=== PATIENT | female | born 1955 | race Caucasian/White ===

== ENCOUNTER 2016-08-27 10:23 | Emergency (ER) | payer OTHER ==
[~2016-08-27] VITALS: Ht 162.6 cm; Wt 66.3 kg
[~2016-08-27 10:23] MED LIST: ACAMPROSATE CA333 MG PO; CAMPRAL333 MG PO; CELEBREX100 MG PO; CELEBREX50 MG PO; CEPHALEXIN500 MG PO; CLONAZEPAM0.5 MG PO; DAILY VITAMIN1 EAC8 PO; EFFEXOR XR150 MG PO; EFFEXOR XR75 MG PO; EFFEXOR75 MG PO; NALTREXONE HCL50 MG PO; NOLVADEX20 MG PO; PRILOSEC10 MG PO; PRINIVIL10 MG PO; REVIA50 MG PO; SYSTANE GEL EYE10 ML BOTH EYES; VENLAFAXINE HC150 M1 PO; ZOLOFT100 MG PO
[2016-08-27 11:11] LABS: ADD MIUA? YES; BILIRUBIN NEGATIVE; BLOOD NEGATIVE; COLOR STRAW ((YELLOW)); GLUCOSE (STRIP) NEGATIVE; KETONES NEGATIVE; LEUKOCYTES TRACE; NITRITE NEGATIVE; PROTEIN (STRIP) NEGATIVE; SPECIFIC GRAVITY 1.006 (1.000-1.030); UROBILINOGEN 0.2 MG/DL (0.2-1.0)
[2016-08-27 11:14] LABS: BACTERIA NONE SEEN /HPF; EPITHELIAL CELLS RARE /HPF; MUCUS NONE SEEN /LPF; RED BLOOD CELLS 0-5 /HPF (0-5); WHITE BLOOD CELLS 0-5 /HPF (0-5)
[2016-08-27] MEDS ORDERED: PRAZOSIN HCL1 MG PO (11:20)
[2016-08-27 11:21] LABS: AMPHETAMINE NEGATIVE (500 ng/mL); BARBITURATES NEGATIVE (200 ng/mL); BENZODIAZEPINES NEGATIVE (150 ng/mL); COCAINE NEGATIVE (150 ng/mL); INTERNAL CONTROLS VALID? YES; METHADONE NEGATIVE (200 ng/mL); METHAMPHETAMINE NEGATIVE (500 ng/mL); OPIATES (MORPHINE) NEGATIVE (100 ng/mL); OXYCODONE NEGATIVE (100 ng/mL); PHENCYCLIDINE NEGATIVE (25 ng/mL); PROPOXYPHENE NEGATIVE (300 ng/mL); THC CANNABINOIDS NEGATIVE (50 ng/mL); TRICYCLIC ANTIDEPRESSANTS NEGATIVE (300 ng/mL)
[2016-08-27] MEDS ORDERED: PRISTIQ50 MG PO (11:21)
[2016-08-27] MEDS ORDERED: NALTREXONE HCL50 MG PO (11:22)
[2016-08-27] MEDS ORDERED: DOXYCYCLINE MO100 MG PO (11:23)
[2016-08-27 11:24] LABS: EOSINOPHIL (%) 4.7 % (0-5); EOSINOPHIL COUNT 0.1 K/uL (0-0.3); HEMATOCRIT 37.7 % (36.0-46.0); IMMATURE GRANULOCYTE (%) 0.3 % (0.0-0.7); INSTRUMENT ABS NEUTROPHIL CT 1.5 K/uL; LYMPHOCYTE COUNT 1.1 K/uL (1.0-2.8); MCH 30.4 PG (29.0-34.0); MCHC 32.6 G/DL (30.0-36.0); MCV 93.1 FL (83-99); MEAN PLAT.VOLUME 8.7 uM^3 (9.5-12.4); MONOCYTE (%) 5.7 % (3-12); MONOCYTE COUNT 0.2 K/uL (0-0.8); NEUTROPHIL (%) 50.8 % (45-76); NEUTROPHIL COUNT 1.5 K/uL (1.8-6.4); PLATELET COUNT 159 K/uL (156-360); RBC DIS.WIDTH-CV 15.5 % (11.8-14.6); RBC DIS.WIDTH-SD 53.1 % (39-53); RED BLOOD COUNT 4.05 M/uL (3.80-5.20)
[2016-08-27 11:32] LABS: CHLORIDE 104 mEq/L (99-109); POTASSIUM 3.6 mEq/L (3.7-5.4); SODIUM 144 mEq/L (136-147)
[2016-08-27 11:34] LABS: GLUCOSE 86 mg/dL (70-99)
[2016-08-27 11:35] LABS: ANION GAP 13 MEQ/L (2-14)
[2016-08-27 11:37] LABS: SERUM ETHYL ALCOHOL 258 mg/dL
[2016-08-27 11:38] LABS: GFR ESTIMATE (CALCULATED) > 59 mL/min/; UREA NITROGEN (BUN) 9 mg/dL (9-23)
[2016-08-27 17:38] VITALS: BP 147/80
== END 2016-08-27 17:49 | disposition home or self-care (01) ==
LOC: EME 10:23
PROVIDERS: Emergency Medicine
DX: F10.129 Alcohol abuse with intoxication, unspecified (principal); F41.9 Anxiety disorder, unspecified; F32.9 Major depressive disorder, single episode, unspecified; F60.9 Personality disorder, unspecified; Y90.8 Blood alcohol level of 240 mg/100 ml or more; Z91.5 Personal history of self-harm; Z87.442 Personal history of urinary calculi; I10 Essential (primary) hypertension; Z88.6 Allergy status to analgesic agent
CPT/HCPCS: 80048; 81003; 85025; 90839; 99281; 99285; G0480

== ENCOUNTER 2017-01-25 16:35 | Emergency (ER) | payer OTHER ==
[~2017-01-25] VITALS: Ht 162.6 cm; Wt 61.3 kg
[~2017-01-25 16:35] MED LIST changes: +DOXYCYCLINE MO100 MG PO; +PRAZOSIN HCL1 MG PO; +PRISTIQ50 MG PO
[2017-01-25 17:59] LABS: HEMATOCRIT 41.2 % (36.0-46.0); MCH 31.5 PG (29.0-34.0); MCHC 34.2 G/DL (30.0-36.0); MEAN PLAT.VOLUME 9.3 uM^3 (9.5-12.4); PLATELET COUNT 260 K/uL (156-360); RBC DIS.WIDTH-CV 13.8 % (11.8-14.6); RBC DIS.WIDTH-SD 47.2 % (39-53); RED BLOOD COUNT 4.48 M/uL (3.80-5.20); WHITE BLOOD COUNT 7.3 K/uL (4.1-10.2)
[2017-01-25 18:09] LABS: CHLORIDE 107 mEq/L (99-109); POTASSIUM 3.8 mEq/L (3.7-5.4); SODIUM 143 mEq/L (136-147)
[2017-01-25 18:10] LABS: MAGNESIUM 1.9 mg/dL (1.3-2.7)
[2017-01-25 18:11] LABS: GLUCOSE 73 mg/dL (70-99)
[2017-01-25 18:12] LABS: ANION GAP 16 MEQ/L (2-14)
[2017-01-25 18:14] LABS: SERUM ETHYL ALCOHOL 146 mg/dL
[2017-01-25 18:15] LABS: GFR ESTIMATE (CALCULATED) > 59 mL/min/
[2017-01-25 18:16] LABS: UREA NITROGEN (BUN) 15 mg/dL (9-23)
[2017-01-25] MEDS ORDERED: ZOFRAN ODT4 MG PO (18:19)
[2017-01-25 19:52] VITALS: BP 125/71
== END 2017-01-25 20:03 | disposition home or self-care (01) ==
LOC: EME 16:35
PROVIDERS: Nurse Practitioner Family
DX: F10.10 Alcohol abuse, uncomplicated (principal); R11.2 Nausea with vomiting, unspecified; Y90.6 Blood alcohol level of 120-199 mg/100 ml; I10 Essential (primary) hypertension
CPT/HCPCS: 80048; 81003; 83735; 85027; 99281; 99284; G0480; J2060; J2405; J7030

== ENCOUNTER 2017-04-23 16:47 | Inpatient (IN) | payer OTHER ==
[~2017-04-23] VITALS: Ht 162.6 cm; Wt 58.9 kg
[~2017-04-23 16:47] MED LIST changes: +ZOFRAN ODT4 MG PO
[2017-04-23 17:57] LABS: HEMATOCRIT 46.2 % (36.0-46.0); HEMOGLOBIN 15.6 G/DL (11.9-15.5); MCH 30.6 PG (29.0-34.0); MCHC 33.8 G/DL (30.0-36.0); MCV 90.6 FL (83-99); PLATELET COUNT 369 K/uL (156-360); RBC DIS.WIDTH-CV 13.6 % (11.8-14.6); RBC DIS.WIDTH-SD 45.2 % (39-53); WHITE BLOOD COUNT 8.3 K/uL (4.1-10.2)
[2017-04-23 18:16] LABS: CHLORIDE 100 mEq/L (99-109); POTASSIUM 4.4 mEq/L (3.7-5.4); SODIUM 136 mEq/L (136-147)
[2017-04-23 18:18] LABS: GLUCOSE 65 mg/dL (70-99)
[2017-04-23 18:21] LABS: SERUM ETHYL ALCOHOL 274 mg/dL
[2017-04-23 18:22] LABS: CREATININE 0.8 mg/dL (0.6-1.3); GFR ESTIMATE (CALCULATED) > 59 mL/min/
[2017-04-23 18:23] LABS: UREA NITROGEN (BUN) 20 mg/dL (9-23)
[2017-04-24 01:29] LABS: CHLORIDE 104 mEq/L (99-109); POTASSIUM 4.3 mEq/L (3.7-5.4); SODIUM 136 mEq/L (136-147)
[2017-04-24 01:31] LABS: GLUCOSE 62 mg/dL (70-99)
[2017-04-24 01:34] LABS: CREATININE 0.6 mg/dL (0.6-1.3); GFR ESTIMATE (CALCULATED) > 59 mL/min/
[2017-04-24 01:35] LABS: UREA NITROGEN (BUN) 14 mg/dL (9-23)
[2017-04-24 02:53] LABS: BASE EXCESS -10.7 mEq/L (-3 to +3); BICARBONATE 13.9 mEq/L (22-26); CARBOXY HGB 1.8 % (0-5); COMMENTS - BLOOD GASES C+A+; DEVICE ROOM AIR; METHEMOGLOBIN 1.1 % (0-1.5); PCO2 27 mm Hg (35-45); PO2 98 mm Hg (80-100); SITE LR; pH 7.32 (7.35-7.45)
[2017-04-24 12:24] LABS: HEMATOCRIT 36.5 % (36.0-46.0); MCH 30.8 PG (29.0-34.0); MCHC 34.5 G/DL (30.0-36.0); MCV 89.2 FL (83-99); RBC DIS.WIDTH-CV 13.9 % (11.8-14.6); RBC DIS.WIDTH-SD 45.1 % (39-53); RED BLOOD COUNT 4.09 M/uL (3.80-5.20)
[2017-04-24 12:36] LABS: ALBUMIN 3.9 g/dL (3.2-4.8); CHLORIDE 104 mEq/L (99-109); POTASSIUM 4.4 mEq/L (3.7-5.4); SODIUM 138 mEq/L (136-147)
[2017-04-24 12:38] LABS: TOTAL PROTEIN 6.6 g/dL (6.4-8.3)
[2017-04-24 12:39] LABS: GLUCOSE 83 mg/dL (70-99)
[2017-04-24 12:40] LABS: TOTAL BILIRUBIN 1.4 mg/dL (0.0-1.0)
[2017-04-24 12:42] LABS: COCAINE NEGATIVE (150 ng/mL); METHAMPHETAMINE NEGATIVE (500 ng/mL); OPIATES (MORPHINE) NEGATIVE (100 ng/mL); PHENCYCLIDINE NEGATIVE (25 ng/mL); THC CANNABINOIDS NEGATIVE (50 ng/mL)
[2017-04-24 12:42] LABS: ALKALINE PHOSPHATASE 83 IU/L (3-129); CREATININE 0.8 mg/dL (0.6-1.3); GFR ESTIMATE (CALCULATED) > 59 mL/min/; HEMOGLOBIN 12.6 G/DL (11.9-15.5)
[2017-04-24 12:43] LABS: UREA NITROGEN (BUN) 13 mg/dL (9-23)
[2017-04-24 12:43] LABS: AMPHETAMINE NEGATIVE (500 ng/mL); BARBITURATES NEGATIVE (200 ng/mL); BENZODIAZEPINES NEGATIVE (150 ng/mL); BUPRENORPHINE NEGATIVE (10 ng/mL); METHADONE NEGATIVE (200 ng/mL); OXYCODONE NEGATIVE (100 ng/mL); PROPOXYPHENE NEGATIVE (300 ng/mL); TRICYCLIC ANTIDEPRESSANTS NEGATIVE (300 ng/mL)
[2017-04-24 12:44] LABS: AST (GOT) 38 IU/L (2-34)
[2017-04-24 12:45] LABS: ALT (GPT) 25 IU/L (3-49)
[2017-04-24 13:22] LABS: PLATELET CLUMPS PRESENT - PLATELET COUNT APPEARS ADQ.; PLATELET COUNT UNABLE TO REPORT K/uL (156-360)
[2017-04-24 16:16] VITALS: BP 131/57
[2017-04-24 19:46] VITALS: BP 100/55
[2017-04-24 20:53] LABS: CHLORIDE 102 MEQ/L (99-109); CREATININE 0.7 MG/DL (0.6-1.3); GFR ESTIMATE (CALCULATED) > 59 mL/min/; POTASSIUM 3.6 MEQ/L (3.7-5.4); SERUM ETHYL ALCOHOL < 10 mg/dL; SODIUM 135 MEQ/L (136-147); UREA NITROGEN (BUN) 18 mg/dL (9-23)
[2017-04-24 20:54] LABS: GLUCOSE 157 mg/dL (70-99)
[2017-04-24 23:52] VITALS: BP 103/55
[2017-04-25 03:44] VITALS: BP 114/59
[2017-04-25 08:16] VITALS: BP 110/71
[2017-04-25 12:15] VITALS: BP 169/89
[2017-04-25 12:44] LABS: CHLORIDE 105 MEQ/L (99-109); CREATININE 0.5 MG/DL (0.6-1.3); GFR ESTIMATE (CALCULATED) > 59 mL/min/; POTASSIUM 3.5 MEQ/L (3.7-5.4); SODIUM 139 MEQ/L (136-147); UREA NITROGEN (BUN) 15 mg/dL (9-23)
[2017-04-25 12:46] LABS: GLUCOSE 104 mg/dL (70-99)
[2017-04-25] MEDS ORDERED: MINIPRESS1 MG PO ×2 (12:55→12:56)
[2017-04-25] MEDS ORDERED: CAMPRAL333 MG PO (12:56)
[2017-04-25] MEDS ORDERED: MINIPRESS2 MG PO (12:56)
[2017-04-25] MEDS ORDERED: NEURONTIN400 MG PO (12:57)
[2017-04-25] MEDS ORDERED: DESVENLAFAXINE100 MG PO (12:58)
[2017-04-25] MEDS ORDERED: DESVENLAFAXINE50 MG PO (12:58)
[2017-04-25] MEDS ORDERED: NALTREXONE HCL50 MG PO (13:00)
[2017-04-25] MEDS ORDERED: ONE DAILY MULT1 EACH PO (13:01)
[2017-04-25] MEDS ORDERED: FOLIC ACID1 MG PO (13:24)
[2017-04-25] MEDS ORDERED: Thiamine,Vitamin B1 PO (13:24)
== END 2017-04-25 15:26 | disposition home or self-care (01) | DRG 897 ==
LOC: EME 16:47 → EDOF 04-24 03:00 → ENRESERV 04-24 03:13 → CANRESERV 04-24 14:09 → ENRESERV 04-24 14:09 → 3EAST 04-24 16:05
PROVIDERS: Emergency Medicine; Family Medicine Sports Medicine
DX: F10.229 Alcohol dependence with intoxication, unspecified (principal); R45.851 Suicidal ideations; I10 Essential (primary) hypertension; R63.0 Anorexia; E86.0 Dehydration; F32.9 Major depressive disorder, single episode, unspecified; M19.90 Unspecified osteoarthritis, unspecified site; Y90.8 Blood alcohol level of 240 mg/100 ml or more; W06.XXXA Fall from bed, initial encounter; Y92.238 Other place in hospital as the place of occurrence of the external cause; Z87.442 Personal history of urinary calculi
CPT/HCPCS: 36600; 70450; 80048; 80048 91; 80053; 82803; 83735; 85027; 90839; 99281; 99285; G0480; J2405; J7030

== ENCOUNTER 2017-06-20 14:32 | Inpatient (IN) | payer OTHER ==
[~2017-06-20] VITALS: Ht 162.6 cm; Wt 60.3 kg
[~2017-06-20 14:32] MED LIST changes: +DESVENLAFAXINE100 MG PO; +DESVENLAFAXINE50 MG PO; +FOLIC ACID1 MG PO; +MINIPRESS1 MG PO; +MINIPRESS2 MG PO; +NEURONTIN400 MG PO; +ONE DAILY MULT1 EACH PO; +Thiamine,Vitamin B1 PO
[2017-06-20 15:37] LABS: BASOPHIL COUNT 0.1 K/uL (0-0.1); EOSINOPHIL (%) 0.4 % (0-5); HEMATOCRIT 37.8 % (36.0-46.0); HEMOGLOBIN 12.9 G/DL (11.9-15.5); IMMATURE GRANULOCYTE (%) 0.6 % (0.0-0.7); LYMPHOCYTE (%) 19.5 % (15-42); LYMPHOCYTE COUNT 1.6 K/uL (1.0-2.8); MCH 31.9 PG (29.0-34.0); MCHC 34.1 G/DL (30.0-36.0); MCV 93.3 FL (83-99); MONOCYTE (%) 4.7 % (3-12); MONOCYTE COUNT 0.4 K/uL (0-0.8); NEUTROPHIL (%) 73.8 % (45-76); NEUTROPHIL COUNT 6.2 K/uL (1.8-6.4); PLATELET COUNT 321 K/uL (156-360); RBC DIS.WIDTH-CV 14.9 % (11.8-14.6); RBC DIS.WIDTH-SD 51.1 % (39-53); RED BLOOD COUNT 4.05 M/uL (3.80-5.20); WHITE BLOOD COUNT 8.4 K/uL (4.1-10.2)
[2017-06-20 15:52] LABS: ALBUMIN 4.1 g/dL (3.2-4.8); CHLORIDE 101 mEq/L (99-109); POTASSIUM 4.1 mEq/L (3.7-5.4); SODIUM 139 mEq/L (136-147)
[2017-06-20 15:55] LABS: GLUCOSE 70 mg/dL (70-99); TOTAL PROTEIN 6.7 g/dL (6.4-8.3)
[2017-06-20 15:57] LABS: TOTAL BILIRUBIN 0.4 mg/dL (0.0-1.0)
[2017-06-20 15:58] LABS: SERUM ETHYL ALCOHOL 298 mg/dL
[2017-06-20 15:59] LABS: ALKALINE PHOSPHATASE 58 IU/L (3-129); CREATININE 0.7 mg/dL (0.6-1.3); GFR ESTIMATE (CALCULATED) > 59 mL/min/
[2017-06-20 16:00] LABS: AST (GOT) 75 IU/L (2-34)
[2017-06-20 16:01] LABS: UREA NITROGEN (BUN) 14 mg/dL (9-23)
[2017-06-20 16:02] LABS: ALT (GPT) 39 IU/L (3-49); SALICYLATE < 5.0 MG/DL (15-30)
[2017-06-20 16:03] LABS: ACETAMINOPHEN (TYLENOL) < 10 mcg/mL (10-30)
[2017-06-20 17:30] LABS: AMPHETAMINE NEGATIVE (500 ng/mL); BARBITURATES NEGATIVE (200 ng/mL); BENZODIAZEPINES NEGATIVE (150 ng/mL); BUPRENORPHINE NEGATIVE (10 ng/mL); COCAINE NEGATIVE (150 ng/mL); METHADONE NEGATIVE (200 ng/mL); METHAMPHETAMINE NEGATIVE (500 ng/mL); OPIATES (MORPHINE) NEGATIVE (100 ng/mL); OXYCODONE NEGATIVE (100 ng/mL); PHENCYCLIDINE NEGATIVE (25 ng/mL); PROPOXYPHENE NEGATIVE (300 ng/mL); THC CANNABINOIDS NEGATIVE (50 ng/mL); TRICYCLIC ANTIDEPRESSANTS NEGATIVE (300 ng/mL)
[2017-06-20 20:49] VITALS: BP 92/54
[2017-06-21 03:03] VITALS: BP 114/55
[2017-06-21 06:32] LABS: BASOPHIL (%) 0.6 % (0-1); EOSINOPHIL (%) 1.2 % (0-5); EOSINOPHIL COUNT 0.1 K/uL (0-0.3); HEMATOCRIT 34.7 % (36.0-46.0); HEMOGLOBIN 11.6 G/DL (11.9-15.5); IMMATURE GRANULOCYTE (%) 0.4 % (0.0-0.7); LYMPHOCYTE (%) 32.6 % (15-42); LYMPHOCYTE COUNT 1.7 K/uL (1.0-2.8); MCHC 33.4 G/DL (30.0-36.0); MCV 92.8 FL (83-99); MONOCYTE (%) 6.9 % (3-12); MONOCYTE COUNT 0.4 K/uL (0-0.8); NEUTROPHIL (%) 58.3 % (45-76); PLATELET COUNT 254 K/uL (156-360); RED BLOOD COUNT 3.74 M/uL (3.80-5.20); WHITE BLOOD COUNT 5.1 K/uL (4.1-10.2)
[2017-06-21 06:54] LABS: CHLORIDE 103 MEQ/L (99-109); CREATININE 0.6 MG/DL (0.6-1.3); GFR ESTIMATE (CALCULATED) > 59 mL/min/; GLUCOSE 81 mg/dL (70-99); LIPASE 46 U/L (1.0-51.0); SERUM ETHYL ALCOHOL < 10 mg/dL; SODIUM 142 MEQ/L (136-147); UREA NITROGEN (BUN) 14 mg/dL (9-23)
[2017-06-21 07:09] VITALS: BP 128/71
[2017-06-21 11:32] VITALS: BP 124/82
[2017-06-21 15:27] VITALS: BP 125/72
[2017-06-22 00:32] VITALS: BP 131/68
[2017-06-22 06:13] LABS: BASOPHIL (%) 0.8 % (0-1); EOSINOPHIL (%) 3.8 % (0-5); EOSINOPHIL COUNT 0.2 K/uL (0-0.3); HEMATOCRIT 33.2 % (36.0-46.0); HEMOGLOBIN 10.9 G/DL (11.9-15.5); IMMATURE GRANULOCYTE (%) 0.3 % (0.0-0.7); LYMPHOCYTE (%) 37.4 % (15-42); LYMPHOCYTE COUNT 1.5 K/uL (1.0-2.8); MCH 31.1 PG (29.0-34.0); MCHC 32.8 G/DL (30.0-36.0); MCV 94.9 FL (83-99); MONOCYTE (%) 6.1 % (3-12); MONOCYTE COUNT 0.2 K/uL (0-0.8); NEUTROPHIL (%) 51.6 % (45-76); NEUTROPHIL COUNT 2.1 K/uL (1.8-6.4); RBC DIS.WIDTH-SD 52.3 % (39-53)
[2017-06-22 06:25] LABS: CHLORIDE 110 MEQ/L (99-109); CREATININE 0.6 MG/DL (0.6-1.3); GFR ESTIMATE (CALCULATED) > 59 mL/min/; GLUCOSE 96 mg/dL (70-99); POTASSIUM 3.9 MEQ/L (3.7-5.4); SODIUM 143 MEQ/L (136-147); UREA NITROGEN (BUN) 9 mg/dL (9-23)
[2017-06-22 06:35] LABS: PLAT.SUFFICIENCY ADEQUATE
[2017-06-22 06:36] LABS: PLATELET COUNT 174 K/uL (156-360)
[2017-06-22 08:16] VITALS: BP 146/81
[2017-06-22 17:16] VITALS: BP 154/66
== END 2017-06-22 21:19 | disposition home or self-care (01) | DRG 897 ==
LOC: EME 14:32 → 3EAST 18:56 → EDOF 18:56 → ENRESERV 18:58 → 3EAST 20:44
PROVIDERS: Emergency Medicine; Family Medicine Sports Medicine
DX: F10.220 Alcohol dependence with intoxication, uncomplicated (principal); F10.230 Alcohol dependence with withdrawal, uncomplicated; Y90.8 Blood alcohol level of 240 mg/100 ml or more; F33.9 Major depressive disorder, recurrent, unspecified; M19.90 Unspecified osteoarthritis, unspecified site; F41.0 Panic disorder [episodic paroxysmal anxiety]; D64.9 Anemia, unspecified; Z91.5 Personal history of self-harm
CPT/HCPCS: 80048; 80053; 82948; 83690; 83735; 85025; 99281; 99284; G0480; J1630; J1650; J2060; J3411; J7030; J7120

== ENCOUNTER 2017-08-31 11:34 | Emergency (ER) | payer OTHER ==
[~2017-08-31] VITALS: Ht 162.6 cm; Wt 60.5 kg
[2017-08-31] MEDS ORDERED: TRAZODONE HCL50 MG PO (13:09)
[2017-08-31 13:27] LABS: HEMOGLOBIN 13.3 G/DL (11.9-15.5); MCH 31.5 PG (29.0-34.0); PLATELET COUNT 174 K/uL (156-360); RBC DIS.WIDTH-CV 11.9 % (11.8-14.6); RBC DIS.WIDTH-SD 38.7 % (39-53); RED BLOOD COUNT 4.22 M/uL (3.80-5.20); WHITE BLOOD COUNT 10.7 K/uL (4.1-10.2)
[2017-08-31 13:36] LABS: CHLORIDE 100 mEq/L (99-109); POTASSIUM 3.3 mEq/L (3.7-5.4); SODIUM 137 mEq/L (136-147)
[2017-08-31 13:38] LABS: GLUCOSE 111 mg/dL (70-99)
[2017-08-31 13:41] LABS: SERUM ETHYL ALCOHOL < 10 mg/dL
[2017-08-31 13:42] LABS: CREATININE 1.1 mg/dL (0.6-1.3); GFR ESTIMATE (CALCULATED) 54 mL/min/
[2017-08-31 13:43] LABS: UREA NITROGEN (BUN) 11 mg/dL (9-23)
[2017-08-31 15:22] LABS: TROP-I INTERPRETATION NEGATIVE; TROPONIN-I 0.02 ng/mL (0.0-0.30)
[2017-08-31 15:34] LABS: APPEARANCE SL.HAZY ((CLEAR)); BILIRUBIN NEGATIVE; BLOOD NEGATIVE; COLOR YELLOW ((YELLOW)); GLUCOSE (STRIP) NEGATIVE; KETONES 20; LEUKOCYTES NEGATIVE; NITRITE NEGATIVE; PROTEIN (STRIP) 30; SPECIFIC GRAVITY 1.017 (1.000-1.030); UROBILINOGEN 0.2 MG/DL (0.2-1.0)
[2017-08-31 15:40] LABS: BACTERIA NONE SEEN /HPF; EPITHELIAL CELLS RARE /HPF; MUCUS 1+ /LPF; UCUL ADDED? YES
[2017-08-31 16:15] VITALS: BP 110/76
== END 2017-08-31 16:16 | disposition home or self-care (01) ==
LOC: EME 11:34
PROVIDERS: Physician Assistant Medical
DX: R55 Syncope and collapse (principal); R00.1 Bradycardia, unspecified; R94.31 Abnormal electrocardiogram [ECG] [EKG]; M50.321 Other cervical disc degeneration at C4-C5 level; M43.8X2 Other specified deforming dorsopathies, cervical region; M25.78 Osteophyte, vertebrae; I10 Essential (primary) hypertension; M48.02 Spinal stenosis, cervical region; F50.9 Eating disorder, unspecified; Z87.442 Personal history of urinary calculi; Z98.890 Other specified postprocedural states; Z88.5 Allergy status to narcotic agent
CPT/HCPCS: 70450; 72125; 80048; 81003; 84484; 85027; 87086; 93005; 99281; 99285; G0480; J7030